=== PATIENT | male | born 1985 | race Caucasian/White ===

== ENCOUNTER 2017-12-12 10:12 | Emergency (ER) | payer OTHER, SELFPAY ==
[2017-12-12 11:21] LABS: HEMATOCRIT 46.4 % (42.0-52.0); HEMOGLOBIN 15.9 g/dl (13.5-17.5); MEAN CORPUSCULAR HEMOGLOBIN 30.5 pg (27.0-33.0); MEAN CORPUSCULAR HGB CONC 34.3 g/dl (32.0-36.5); MEAN CORPUSCULAR VOLUME 89.1 fl (80.0-96.0); PLATELET COUNT, AUTOMATED 260 10^3/uL (150-450); RED BLOOD COUNT 5.21 10^6/uL (4.30-6.10); RED CELL DISTRIBUTION WIDTH 12.8 % (11.5-14.5); WHITE BLOOD COUNT 9.1 10^3/uL (4.0-10.0)
== END 2017-12-12 11:55 | disposition home or self-care (01) ==
LOC: M ED 10:12
DX: K62.5 Hemorrhage of anus and rectum (principal)
CPT/HCPCS: 85027

== ENCOUNTER 2017-12-30 12:57 | Day surgery (SDC) | payer OTHER ==
[~2017-12-30 12:57] MED LIST: LIDOCAINE 2% INJ 100 MG/5 ML SDV (FOR ANES.) As Ordered; PROPOFOL 200 MG/20 ML VIAL As Ordered; fentaNYL 100 MCG/2 ML INJECTION (J3010) As Ordered
[2017-12-30] MEDS: NS 1,000 ML IV (13:12)
[2017-12-30] MEDS ORDERED: PROPOFOL 200 MG/20 ML VIAL As Ordered ×2 (13:49)
== END 2017-12-30 15:00 | disposition home or self-care (01) ==
LOC: M OPP 15:00
DX: Z09 Encounter for follow-up examination after completed treatment for conditions other than malignant neoplasm (principal); Z86.010 Personal history of colon polyps; D37.4 Neoplasm of uncertain behavior of colon; K62.5 Hemorrhage of anus and rectum; D12.5 Benign neoplasm of sigmoid colon; K21.9 Gastro-esophageal reflux disease without esophagitis; R10.9 Unspecified abdominal pain; R12 Heartburn; R06.83 Snoring; F17.220 Nicotine dependence, chewing tobacco, uncomplicated; M54.89 Other dorsalgia; E66.9 Obesity, unspecified; Z88.0 Allergy status to penicillin; Z91.02 Food additives allergy status; Z79.899 Other long term (current) drug therapy; Z80.0 Family history of malignant neoplasm of digestive organs
CPT/HCPCS: 45380

== ENCOUNTER → 2019-06-30 | Outpatient (REF) | payer OTHER ==
[~2019-06-30] MED LIST changes: -LIDOCAINE 2% INJ 100 MG/5 ML SDV (FOR ANES.) As Ordered; +OMEP-358 PO; -PROPOFOL 200 MG/20 ML VIAL As Ordered; -fentaNYL 100 MCG/2 ML INJECTION (J3010) As Ordered
[2019-06-30 14:01] LABS: BASO # 0.1 10^3/uL (0.0-0.2); BASO % 0.5 % (0.0-1.0); EOS % 0.3 % (0.0-3.0); HEMATOCRIT 48.4 % (42.0-52.0); HEMOGLOBIN 16.1 g/dl (13.5-17.5); LYMPH # 1.2 10^3/uL (1.5-5.0); LYMPH % 11.8 % (24.0-44.0); MEAN CORPUSCULAR HEMOGLOBIN 30.7 pg (27.0-33.0); MEAN CORPUSCULAR HGB CONC 33.3 g/dl (32.0-36.5); MEAN CORPUSCULAR VOLUME 92.2 fl (80.0-96.0); MONO # 0.7 10^3/uL (0.0-0.8); MONO % 6.8 % (0.0-5.0); NEUTROPHILS # 7.9 10^3/uL (1.5-8.5); NEUTROPHILS % 79.9 % (36.0-66.0); PLATELET COUNT, AUTOMATED 297 10^3/uL (150-450); RED BLOOD COUNT 5.25 10^6/uL (4.30-6.10); WHITE BLOOD COUNT 9.9 10^3/uL (4.0-10.0)
[2019-06-30 14:32] LABS: ALBUMIN 4.7 GM/DL (3.2-5.2); ALT/SGPT 83 U/L (12-78); BILIRUBIN,TOTAL 1.1 MG/DL (0.2-1.0); BLOOD UREA NITROGEN 11 MG/DL (7-18); CALCIUM LEVEL 9.4 MG/DL (8.5-10.1); CARBON DIOXIDE LEVEL 26 MEQ/L (21-32); CHLORIDE LEVEL 103 MEQ/L (98-107); CK-MB VALUE MASS 1.7 NG/ML (<3.6); CPK CREATINE PHOSPHOKINASE 207 U/L (39-308); CREATININE FOR GFR 0.88 MG/DL (0.70-1.30); GLOMERULAR FILTRATION RATE > 60.0 (>60); GLUCOSE, FASTING 96 MG/DL (70-100); MB/CK RELATIVE INDEX 0.82 (< OR =4); NT-PRO BNP 18 PG/ML (<125); POTASSIUM SERUM 4.5 MEQ/L (3.5-5.1); SODIUM LEVEL 138 MEQ/L (136-145); TROPONIN I < 0.02 NG/ML (< 0.10)
== END ==
LOC: M SFHCLERA 12:30
PROVIDERS: ATTEND Nurse Practitioner Family
DX: R07.9 Chest pain, unspecified (principal)

== ENCOUNTER → 2019-06-30 | Outpatient (CLI) | payer OTHER ==
--- NOTE | 2019-06-30 13:10 | REP ---
Chest x-ray: Two views. History: Chest tightness and shortness of breath. Comparison chest x-ray September 25, 2009. Findings: Right hemidiaphragm is slightly elevated. Pleural angles are sharp. The lungs are well inflated and clear. Heart is not enlarged. Pulmonary vasculature is not increased. No significant bony abnormality. Impression: Negative chest x-ray. Electronically Signed by Sharad Vanessa MD 06/30/2019 01:02 P
== END ==
LOC: M LRY 12:33
PROVIDERS: ATTEND Nurse Practitioner Family
DX: R07.9 Chest pain, unspecified (principal)